=== PATIENT | female | born 1975 | race Caucasian/White ===

== ENCOUNTER 2019-03-30 21:42 | Emergency (ER) | payer MEDICARE, MEDICAID, SELFPAY ==
--- NOTE | ~2019-03-30 | XR_ITS ---
EXAMINATION: XR chest 2V DATE: 03/30/2019 22:42 INDICATION: Shortness of breath, chest pain and palpitations. TECHNIQUE: PA and lateral views of the chest were obtained. COMPARISON: None FINDINGS: The lungs are clear with no focal airspace opacities, pulmonary edema, pleural effusion or pneumothor ax. The cardiomediastinal silhouette is normal. Mild to moderate thoracic spondylosis. IMPRESSION: 1. No acute cardiopulmonary disease. Reviewed, dictated and finalized at location A. CUTTER APPRENTICE
--- NOTE | 2019-03-30 21:48 | ECG_ITS ---
Measurements Intervals [place] Rate: 80 P: 59 LA: 194 QRS: 60 QRSD: 85 T: 53 QT: 392 QTc: 454 Interpretive Statements SINUS RHYTHM NORMAL ECG Electronically Signed On 03-31-2019 10:44:57 STILL CLEANER by Sander Torres D.O.
[2019-03-30 22:02] VITALS: BP 123/83; PULSE 76; RESP 22; TEMP 36.8; O2SAT 100
[2019-03-30 22:07] LABS: Basophils Percent Auto 0.4 % (0.2-1.2); Eosinophils Absolute Auto 0.3 K/mm3 (0-0.3); Eosinophils Percent Auto 3.5 % (0-4.4); Hematocrit 36.1 % (37.0-47.0); Hemoglobin 11.9 g/dL (12.0-15.0); Immature Granulocyte Absolute 0.03 K/mm3 (0.00-0.031); Immature Granulocyte Percent A 0.4 % (0-0.5); Lymphocytes Absolute Auto 4.25 K/mm3 (0.9-3.2); Lymphocytes Percent Auto 50.2 % (18.3-44.2); Mean Corpuscular Hemoglobin 31.2 pg (26-34); Mean Corpuscular Volume 94.5 fl (80-100); Monocytes Absolute Auto 0.5 K/mm3 (0.1-0.6); Monocytes Percent Auto 5.7 % (2.6-8.5); Neutrophils Absolute Auto 3.4 K/mm3 (1.3-6.7); Neutrophils Percent Auto 39.8 % (45.5-73.1); Platelet Count Result 265 k/mm3 (150-375); Red Blood Count 3.82 M/mm3 (4.2-5.4); Red Cell Distribution Width 13.7 % (11.5-14.5); White Blood Count 8.5 K/mm3 (4.5-10.0)
[2019-03-30 22:15] LABS: INR 0.9
[2019-03-30 22:16] LABS: Partial Thromboplastin Time 33.7 SECONDS (22.3-36.8)
[2019-03-30 22:54] LABS: Blood Urea Nitrogen 16 mg/dL (7-17); Calcium 9.1 mg/dL (8.4-10.2); Carbon Dioxide 27 mmol/L (22-30); Chloride 103 mmol/L (98-107); Estimated CRCL calculation 121 ml/min; Estimated Glomerular Filt Rate > 60; Glucose 84 mg/dL (65-105); Potassium 4.1 mmol/L (3.4-5.0); Sodium 139 mmol/L (137-145); Troponin I < 0.012 ng/mL (0.000-0.034)
[2019-03-31 00:37] VITALS: BP 113/65; PULSE 87; RESP 18; O2SAT 95
--- NOTE | 2019-03-31 00:38 | ED.CHESTPAIN ---
HPI - Chest Pain General Chief Complaint: Chest Pain Stated Complaint: CARDIAC ISSUES Time Seen by Provider: 03/31/19 00:37 History of Present Illness HPI narrative: A 43 y/o female presents to the ED with c/o chest pain. Patient reports feeling anxious, and earlier she felt as if she was going to . Patient has been started on Lexapro 2 months ago to help with her anxiety, and she reports is not helping much. She reports dull, aching chest pain which resolves when she feels calm. Patient reports recent stressor includes a break-up with her ex-boyfriend. Patient symptoms have been more frequent, that is why she sought care in the emergency department. She has spoken with the primary care physician regarding the symptoms. No thoughts of harming herself or others. Related Data Allergies Allergy/AdvReac Type Severity Reaction Status Date / Time tramadol Allergy Intermediate Hives / Verified 07/04/15 17:32 Red Face Review of Systems Review of Systems: Narrative: CONSTITUTIONAL: Denies fever, chills, or sweats. CARDIOVASCULAR: Reports chest pain, now resolved, reports palpitations, now resolved, denies edema RESPIRATORY: Denies cough or dyspnea. GASTROINTESTINAL: Denies abdominal pain, nausea, vomiting, or diarrhea. GENITOURINARY: Denies dysuria or hematuria. SKIN: Denies rash or itching. MUSCULOSKELETAL: Denies back pain, joint pain, or myalgia. NEUROLOGIC: Denies headache, numbness, or weakness. PSYCHIATRIC: Denies anxiety or depression. All systems reviewed & are unremarkable except as noted in HPI and below PMFSH Past Medical History Medical History (Updated 03/31/19 @ 01:45 by Helen Coffey MD) Bipolar disorder Chronic back pain Depression Surgical History Surgical History (Updated 03/31/19 @ 00:39 by Anika Vaca) No pertinent past surgical history Family History Family History Other Cerebrovascular accident Depression Diabetes mellitus Family history of Alzheimer's disease Family history of alcoholism Family history of anemia Family history of arthritis Family history of hepatitis Family history of malignant neoplasm of ovary Family history of mental disorder Family history of osteoporosis Malignant neoplasm of prostate Social History Social History (Updated 03/31/19 @ 00:39 by Anika Vaca) Smoking packs per day: 1 Smoking cigarettes per day: 20.0 Years smoked: 20 Smoking pack-years: 20.00 Smoking status: Current every day smoker Second hand tobacco smoke exposure: Yes Alcohol intake: never Gender identity (if verbalized by the patient): Female Exam Narrative: Exam Narrative: GENERAL: Well-appearing, well-nourished, and in no acute distress. HEAD: Normocephalic, atraumatic. EYES: PERRLA and EOMI. ENT: Nares clear, no rhinorrhea or epistaxis. Mucous membranes moist. NECK: Supple. CHEST: Clear to auscultation. No respiratory distress. No chest wall tenderness. HEART: Regular rate and rhythm. No murmur heard. Normal peripheral pulses. ABDOMEN: Soft, nontender, nondistended, normal active bowel sounds. EXTREMITIES: Normal range of motion. No edema. SKIN: Warm, dry, no rash. NEURO: No focal deficits. Alert and oriented X3. Course Vital Signs Vital signs: Vital Signs Temperature 36.8 C 03/30/19 22:02 Pulse Rate 76 03/30/19 22:02 Respiratory Rate 22 H 03/30/19 22:02 Blood Pressure 123/83 03/30/19 22:02 Pulse Oximetry 100 03/30/19 22:02 Temperature 36.8 C 03/30/19 22:02 Pulse Rate 87 03/31/19 00:37 Respiratory Rate 18 03/31/19 00:37 Blood Pressure 113/65 03/31/19 00:37 Pulse Oximetry 95 03/31/19 00:37 MDM - Chest Pain MDM Narrative Medical decision making narrative: Patient's EKG and labs are without significant high risk changes. I feel that patient's symptoms are more consistent with anxiety with the patient also reports as well. Cardiac risk factors r
[2019-03-31] MEDS: ASPIRIN 81 MG CHEWABLE TABLET 324 MG PO (00:43)
[2019-03-31 01:28] LABS: Troponin I < 0.012 ng/mL (0.000-0.034)
[2019-03-31] MEDS: LORAZEPAM 0.5 MG TABLET (01:58)
[2019-03-31 02:04] VITALS: BP 114/80; PULSE 89; RESP 18; O2SAT 96
== END 2019-03-31 02:05 | disposition home or self-care (01) ==
PROVIDERS: Emergency Provider Emergency Medicine; PCP Internal Medicine
DX: R07.89 Other chest pain (principal); F41.9 Anxiety disorder, unspecified; F17.210 Nicotine dependence, cigarettes, uncomplicated
CPT/HCPCS: 36415; 71046; 80048; 84484; 85025; 85610; 85730; 93005; 99284; A9270

== ENCOUNTER 2024-06-08 15:18 | Outpatient (CLI) | payer MEDICARE, MEDICAID, SELFPAY ==
--- NOTE | ~2024-06-08 | XR_ITS ---
XR lumbar spine 2-3V 06/08/2024 15:43 Indication: Low back pain Procedure: 3 views lumbar spine Comparison: 08/05/2009 Findings: Vertebral body heights are maintained. There is been significant loss of vertebral body hei ghts at all lumbar levels. There is grade 1 degenerative spondylolisthesis at L4-5 secondary to facet hypertrophy. There is moderate multilevel facet degenerative change. There is dextroscoliosis. Impression: 1: Interval development of moderate lumbar spondylosis with grade 1 degenerative spondylolisthesis at L4-5 and dextroscoliosis. Reviewed, dictated and finalized at location B. Impression: 1: Interval development of moderate lumbar spondylosis with grade 1 degenerativ e spondylolisthesis at L4-5 and dextroscoliosis.
--- OUTSIDE RECORDS SUMMARY | 2024-06-08 15:25 | XMS_ITS | Clinical Summary ---
Author Organization [facility] Address [address] [place] [address] Care Team Providers Care Wooden Boat Builder Name Role Phone Padmini Capellan MD Primary Care Provider Social History Tobacco Use Types Packs/Day Years Used Date Smoking Tobacco: Never Assessed Comments Unknown Sex and Gender Information Value Date Recorded Sex Assigned at Not on file Legal Sex Female 7:35 PM CDT Gender Identity Not on file Sexual Orientation Not on file Plan of Treatment Health Maintenance Due Date Last Done Comments Cervical Cancer Screening Pa p Smear (Age 30 to 64) Every 3 Years 1975 Colorectal Cancer Screening Colonoscopy (10 Years) 1975 Annual Physical 11/11/1978 Hepatitis C 11/11/1993 DTaP, Tdap and Td Vaccines ( 1 - Tdap) 11/11/1994 Hepatitis B Vaccines (1 of 3 - 19+ 3-dose series) 11/11/1994 Cervical Cancer Screening Pa p with HPV Testing (Age 30 to 64) Every 5 Years 11/11/2005 Cervical Cancer Screening with HPV 11/11/2005 Mammogram Screening 2015 COVID-19 Vaccine (2023-2 5 season) 2023 Meningococcal B Vaccine Aged Out No l onger eligible based on patient's age to complete this topic Meningococcal Vaccine Aged Out No neymar navdeep eligible based on patient's age to complete this topic Pneumococcal Vaccine: Pediat rics (0 to 5 Years) and At-Risk Patients (6 to 49 Years) Aged Out No longer eligible b ased on patient's age to complete this topic RSV Immunizations Under 20 Months Aged Out No longer eligible based on patient's age to complete this topic Care Teams Wooden Boat Builder Relationship Specialty Start Date End Date Padmini Capellan MD [address] [place] [address] (work) PCP - General 05/05/11
--- OUTSIDE RECORDS SUMMARY | 2024-06-08 15:25 | XMS_ITS | Continuity of Care Document ---
Author Organization [facility] Address [address] [facility] [place] [address] Phone Care Team Providers Care Evaporator Repairer Name Role Phone Wood Hackett MD Unavailable Unavailable Allergies, Adverse Reactions, Alerts Substance Reaction Status Criticality No Known Allergies Active No Inform ation Medications Medication Instructions Dosage Effective Dates (start - stop) Status Comments Xanax 1 mg tablet take 1 tablet by oral route 2 times every day as needed 1 MG - Active avoid drivin g or operaet machines Wellbutrin XL 300 mg 24 hr tablet, extended release take 1 tablet (300MG) by oral route every morning 300 MG - Active Procedures Procedure Date OFFICE/OUTPATIENT VISIT, EST OFFICE/OUTPATIENT VISIT, EST OFFICE/OUTPATIENT VISIT, EST OFFICE/OUTPATIENT VISIT, EST OFFICE/OUTPATIENT VISIT, EST OFFICE/OUTPATIENT VISIT, EST OFFICE/OUTPATIENT VISIT, EST OFFICE/OUTPATIENT VISIT, EST OFFICE/OUTPATIENT VISIT, EST OFFICE/OUTPATIENT VISIT, EST OFFICE/OUTPATIENT VISIT, EST OFFICE/OUTPATIENT VISIT, EST OFFICE/OUTPATIENT VISIT, EST OFFICE/OUTPATIENT VISIT, NEW Advance Directives Directive Yes / No Effective Date File Name No Information Encounters Encounter Description Practice Location Reason(s) For Visit Diagnoses Date Provider Providers Copied on Encounter [facility], [address] [place] [id number], [place] tel:[phone] [facility] No Information 6 Lew Muir. [address], [place], [place], [address] , . tel:[phone] Referring Provider: Laith Murillo [address] [facility] [place], [place], [place], [address]. tel:[phone] OFFICE/OUTPA TIENT VISIT, [facility], [address] [place], [address], [place] tel:[phone] [facility] opioid dependency (chief complaint)anxie ty (chief complaint)Postp artum (chief complaint)thyro id nodule (chief complaint) Opioid type dependence, unspecified useSedative, hypnotic or anxiolytic dependence, unspecifiedNon toxic uninodular goiter 5 Lew Young [address], [address] , . tel:[phone] Referring Provider: Laith Murillo [address] [facility] [address], [place], [place], [address]. tel:[phone] OFFICE/OUTPA TIENT VISIT, [facility], [address] [place], [address], [place] tel:[phone] [facility] nasuea (chief complaint)anxie ty (chief complaint) Dietary surveillance and counselingNaus ea And VomitingAbdomi nal PainDepression [address], [address] , [place]. tel:[phone] Referring Provider: Laith Murillo [address] [facility] [address], [place], [place], [address]. tel:[phone] OFFICE/OUTPA TIENT VISIT, [facility], [address] [place], [address], [place] tel:[phone] [facility] narcotic dependency (chief complaint)anxie ty (chief complaint) Unspecified disorder of thyroidOpioid type dependence, unspecified use 4 Lew Muir. [address], [place], [place], [address] , [place]. tel:[phone] Referring Provider: Laith Murillo [address], [place], [place], [address]. tel:[phone] OFFICE/OUTPA TIENT VISIT, [facility], [address], [place], [place], [address], [place] tel:[phone] [facility] weight gain (chief complaint)depre ssion (chief complaint)thyro id disease (chief complaint) Dietary surveillance and counselingUnsp ecified disorder of thyroidAbnorma l weight gain May- 4 Lew Muir. [address], [address], [place], [place], [address] , [place]. [phone] Referring Provider: Laith Murillo [address], [place], [place], [address]. tel:[phone] OFFICE/OUTPA TIENT VISIT, [facility], [address], [place], [place], [address], [place] tel:[phone] [facility] anxiety (chief complaint)URI (chief complaint) Dietary surveillance and counselingAcut e upper respiratory infections of other multiple sites Apr- 4 Lew Muir. [address], [address], [place], [place], [address] , [place]. [phone] Referring Provider: Laith Murillo [address], [place], [place], [address]. tel:[phone] OFFICE/OUTPA TIENT VISIT, [facility], [address], [place], [address], [place] tel:[phone] [facility] weight gain (chief complaint)depre ssion (chief complaint)heada zulay (chief complaint) Dietary surveillance and counselingAbno rmal weight gainUnspecifie d disorder of thyroidHeadach e Apr- 4 Lew Young [address], [place], [place], [address] , [place]. tel:[phone] Referring Provider: Laith Murillo [address], [place], [place], [address]. tel:[phone] OFFICE/OUTPA TIENT VISIT, [facility], [address], [place], [place], [address], [place] tel:[phone] [facility] weight gain (chief complaint)anxie ty (chief complaint) Dietary surveillance and counselingAbno rmal weight gain 0 3 Lew Muir. [address], [place], [place], [address] , [place]. tel:[phone] Referring Provider: Laith Murillo [address], [place], [place], [address]. tel:[phone] OFFICE/OUTPA TIENT VISIT, [facility], [address], [place], [place], [address], [place] tel:[phone] [facility] weight gain (chief complaint) Dietary surveillance and counselingAbno rmal weight gain 3 Lew Muir. [address], [place], [place], [address] , [place]. tel:[phone] Referring Provider: Laith Murillo [address], [place], [place], [address]. tel:[phone] OFFICE/OUTPA TIENT VISIT, [facility], [address], [place], [place], [address], [place] tel:[phone] [facility] hypothyroidism (chief complaint)tobac co (chief complaint)const ipation (chief complaint)anxie ty (chief complaint) Dietary surveillance and counselingGoit er, unspecifiedCon stipation, unspecifiedAbn ormal weight gain 3 Lew Muir. [address], [place], [place], [address] , [place]. tel:[phone] Referring Provider: Laith Murillo [address], [place], [place], [address]. tel:[phone] OFFICE/OUTPA TIENT VISIT, [facility], [address], [place], [address], [place] tel:[phone] [facility] Medicine goiter (chief complaint)neck pain (chief complaint) Goiter, unspecifiedCer vicalgia 3 Lew Muir. [address], [place], [place], [address] , [place]. tel:[phone] Referring Provider: Wood Hackett, [address], [place], [place], [address]. tel:[phone] OFFICE/OUTPA TIENT VISIT, [facility], [address], [place], [address], [place] tel:[phone] [facility] neck pain (chief complaint)HLP (chief complaint)eleva tamra thyroid (chief complaint)heada zulay (chief complaint) CervicalgiaHea dacheGoiter, unspecified 3 Lew Muir. [address], [place], [place], [address] , [place]. tel:[phone] Referring Provider: Wood Hackett [address], [place], [place], [address]. tel:[phone] OFFICE/OUTPA TIENT VISIT, [facility], [address], [place], [address], [place] tel:[phone] [facility] Neck pain (chief complaint)HTN (chief complaint)heada zulay (chief complaint) Dietary surveillance and counselingHype rtension, UnspecifiedCer vicalgiaHeadac he 3 Lew Muir. [address], [place], [address] , [place]. tel:[phone] Referring Provider: Laith Murillo [address], [place], [address]. tel:[phone] OFFICE/OUTPA TIENT VISIT, [facility], [address], [place], [address], [place] tel:[phone] [facility] neck pain (chief complaint) CervicalgiaDis turbance of skin sensation 3 Lew Muir. [address], [facility] [address], [place], [address] , [place]. tel:[phone] Referring Provider: Wood Hackett, [address], [place], [place], [address]. tel:[phone] OFFICE/OUTPA TIENT VISIT, [facility], [address], [place], [address], [place] tel:[phone] [facility] neck pain (chief complaint) CervicalgiaHea dache 3 Lew Muir. [address], [facility] [address], [place], [address] , [place]. tel:[phone] Referring Provider: Wood Hackett, [address] [facility] [address], [place], [place], [address]. tel:[phone] Family History Family Member Type Diagnosis Age At Onset Mother Problem (finding) Cancer, cervical Brother Problem (finding) Alive and well Mother Problem (finding) depression Father Problem (finding) Cancer - prostae ca Payers Payer name Insurance type Covered constitution party ID Authoriza tion(s) No Information Social History Type Description Quantity Date Captured Comments Sex Female Smoking Status No Information Chief Complaint And Reason For Visit No Information Plan Of Treatment Date Type Action Status Goal Depression screening. Due on due Goal Pap/HPV testing. Due on due Goal Td vaccine. Due on 16 due Goal Tdap. Due on due Goal Tobacco cessation counseling completed Goal Tobacco cessation counseling completed Goal Tobacco cessation counseling completed Goal Tobacco cessation counseling completed Goal Tobacco cessation counseling completed Goal Tobacco cessation counseling completed Goal Tobacco cessation counseling completed Goal Tobacco cessation counseling completed Goal Tobacco cessation counseling completed Goal Tobacco cessation counseling completed Goal Tobacco cessation counseling completed Goal Tobacco cessation counseling completed Referral Ordered: Endocrinology ordered Referral Ordered: Referral: Endocrinology. Evaluate and treat. ordered Referral Ordered: US THYROID ordered Referral Ordered: Referral: Pain Management. Evaluate and treat. ordered Referral Ordered: Physical Therapy (related to Cervicalgia) ordered Referral Referred To: Physical Therapy Ordered: Referral: Physical Therapy. ordered Referral Ordered: MRI NECK SPINE W/O DYE ordered Referral Ordered: CERVICAL SPINE XRAY 7 VIEWS ordered History Of Present Illness Encounter Date Complaint History Of Prese nt Illness No Information Instructions Date Instruction Additional Infor mation Dietary counseling Related to Di etary surveillance counseling Decrease caloric intake Related to Dietary surveillance counseling Dietary counseling Related to Di etary surveillance counseling Decrease caloric intake Related to Dietary surveillance counseling Decrease caloric intake Related to Dietary surveillance counseling Dietary counseling Related to Di etary surveillance counseling Decrease caloric intake Related to Dietary surveillance counseling Dietary counseling Related to Di etary surveillance counseling Dietary counseling Related to Di etary surveillance counseling Decrease caloric intake Related to Dietary surveillance counseling Dietary counseling Related to Di etary surveillance counseling Decrease caloric intake Related to Dietary surveillance counseling Dietary counseling Related to Di etary surveillance counseling Decrease caloric intake Related to Dietary surveillance counseling Medications as instructed Relate d to Cervicalgia Dietary counseling Related to Di etary surveillance counseling Decrease caloric intake Related to Dietary surveillance counseling Assessments Type Assessment Date No Information
--- OUTSIDE RECORDS SUMMARY | 2024-06-08 15:25 | XMS_ITS | CONTINUITY OF CARE DOCUMENT ---
Author Name quintin ribeiro Address Unknown Organization [facility] Address [address] [place] [address] [address] [place] [address] Phone [phone] Care Team Providers Care Horizontal Resaw Operator Name Role Phone quintin ribeiro Unavailable Unavailable
--- OUTSIDE RECORDS SUMMARY | 2024-06-08 15:25 | XMS_ITS | Clinical Summary ---
Author Organization 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 Gender Identity Not on file Sexual Orientation Not on file Plan of Treatment Health Maintenance Due Date Last Done Comments Hepatitis C Virus (HCV) Screening 1975 Hepatitis B Immunization (1 of 3 - 19+ 3-dose series) 11/11/1994 Pap Smear 11/11/1996 Cervical Cancer Screening (CCS) 11/11/2005 HPV/Cotest 11/11/2005 Discussion re Starting/Frequency of Mammograms 2015 Colonoscopy 11/11/2020 Colorectal Cancer Screening 11/11/2020 Influenza Immunization (#1) 10/23/202312/23, 11/17/2017, 01/25/2017, Additional history exists SARS-COV-2 Immunization ( season) 2023 10/14/2020, 09/23/2020 Respiratory Syncytial Virus (RSV) Immunization (Adult) (1 - 1-dose 75+ series) 11/11/2050 Pneumococcal Immunization Combined Aged Out 11/08/2012 No longer eligible based on patient's age to complete this topic DTaP/Tdap/Td Immunization Discontinued 02/21/2013 TdaP Immunization Completed 02/21/2013 Meningococcal Immunization (ACWY) Aged Out No longer eligible based on patient's age to complete this topic Rotavirus Immunization Aged Out No lo nger eligible based on patient's age to complete this topic
--- OUTSIDE RECORDS SUMMARY | 2024-06-08 15:25 | XMS_ITS | Clinical Summary ---
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 Gender Identity Not on file Sexual Orientation Not on file Plan of Treatment Health Maintenance Due Date Last Done Comments DTAP/TDAP/TD VACCINES (1 - Tdap) 11/11/1994 HEPATITIS B VACCINES (1 of 3 - 19+ 3-dose series) 10/23 HPV/Cotest (21-29) 11/11/1996 CERVICAL CANCER SCREENING 11/11/2005 HPV/Cotest (30-65) 11/11/2005 PAP SMEAR 11/11/2005 BREAST CANCER SCREENING 2015 COLORECTAL SCREENING 11/11/2020 Colorectal Cancer Screening 11/11/2020 FIT-DNA Q 3 years 11/11/2020 FIT/FOBT Q 1 year 11/11/2020 Flex Sig/CT Colonography Q 5 years 11/11/2020 INFLUENZA VACCINE (#1) 2023 Care Teams Cover Cutter Relationship Specialty Start Date End Date Helena hOara MD [address] [address] PCP - General 06/18/03
--- OUTSIDE RECORDS SUMMARY | 2024-06-08 15:25 | XMS_ITS | Encounter Summary ---
Author Organization [facility] Address 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
== END 2024-06-08 15:19 | disposition home or self-care (01) ==
PROVIDERS: PCP Internal Medicine; Visit Provider Internal Medicine Infectious Disease
DX: M43.16 Spondylolisthesis, lumbar region (principal); M41.86 Other forms of scoliosis, lumbar region
CPT/HCPCS: 72100